=== PATIENT | female | born 1975 | race Caucasian/White ===

== ENCOUNTER → 2021-05-26 13:59 | Outpatient (BNVA) | payer BC, SELFPAY | PROVIDERS: PCP Nurse Practitioner Family; Visit Provider Hospitalist ==

== ENCOUNTER 2023-06-06 11:08 | Outpatient (AMB) | payer BC, SELFPAY ==
[2023-06-06 11:16] VITALS: BP 118/70; PULSE 65; O2SAT 96; BMI 28.2
--- NOTE | 2023-06-06 11:16 | A.OFFVIS_ITS ---
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 Allergies amoxicillin Allergy (Severe, Verified 06/06/23 11:19) Rash oxcarbazepine [Trileptal] Allergy (Severe, Verified 06/06/23 11:19) Numbness Tongue Sulfa (Sulfonamide Antibiotics) Allergy (Severe, Verified 06/06/23 11:19) Hives Erythromycin Allergy (Severe, Uncoded 06/06/23 11:19) Nausea Penicillins Allergy (Severe, Uncoded 06/06/23 11:19) Rash Wellbutrin Allergy (Severe, Uncoded 06/06/23 11:19) Raging HPI HPI Comments History of Present Illness Details Tthe patient is a 48-ear-old woman with a known history of asthma in addition to significant allergies and obstructive sleep apnea on CPAP. For nest not standpoint the patient has had a good year. She was able to taper off some of her medication for the winter and spring. Subsequently in the summertime she was having more exposures and she was started having increasing chest tightness and having to use her rescue inhaler. So therefore she maximized on her inhaled cortical steroid, QVAR and she did well. She did not require prednisone. She has not been sick with any viral syndrome. The patient has been vaccinated for COVID-19. In the meantime she does have allergies specially with cats. She does have family's with cats and makes it difficult to visit. She is interested in considering going back to allergy shots that work well for her. Therefore make a referral to a local communications supervisor. In the meantime she continues use her CPAP. The CPAP therapy continues to be affecting beneficial. She does use it for more than 4 hours a night. At this point she is looking to traveling more and is interested in a travel CPAP. I will give her prescription for her to take to her supplier. Otherwise patient will follow-up in a year's time. If she has any issues she knows to call our office for an earlier evaluation. 06/01/2022 the patient is here for pulmonary follow-up visit. Overall the patient has been doing fairly well. She did restart her allergy testing. Since it was an issue of the allergy supplies on back order now she has to restart from the beginning. The patient is okay with that. She does have increased allergies and allergy symptoms at this time. She has been using her QVAR more regularly because of that reason. Still she does require her short-acting beta agonist more than twice a week. We did talk about considering a combination inhaler. At this point I will send the Liliam to the pharmacy that she can use it started the QVAR. I am hopeful that her knee of her rescue inhaler will decrease with a combination inhaler. She will continue with the allergy testing and also the allergy medication. From a CPAP standpoint the patient is doing well. She does uses CPAP every night. CPAP therapy continues to be affecting beneficial. She is getting supplies readily available through her [employer] company, regional. 06/06/2023 the patient is here for a regular follow-up visit. Overall the patient has been having more symptoms lately because of the transitioning over to fall. Indeed having to increase her uses Symbicort lately. The patient has been having continue allergy symptoms. She does take allergy shots and now she only does some once a month. As far as her CPAP the CPAP therapy continues to be affecting beneficial. Although seems like the machine is not working as a properly anymore. Difficult to download since is an older machine and does not provide any further download. Based on the fact that she has had for more than 5 years not able to be downloaded in does not seem to be working appropriately will request a replacement AirSense 11 APAP through her current DME company. She is going to continue with her allergy shots and continue with Symbicort otherwise. If she has any issues at any point she can always call for an earlier assessment. [facility] Medical History (Updated 05/26/21 @ 21:34 by Graeme Moore MD) Chronic allergic rhinitis OCTAVIA on CPAP Unspecified asthma, uncomplicated Social History (Updated 05/26/21 @ 14:08 by JEVON Tyson) Patient Tobacco Use Status: Never used Tobacco Review of Systems Const Denies night sweats Eyes Reports itchy eyes ENT Denies change in voice, Denies lip swelling, Denies mouth pain, Reports nasal congestion, Reports nasal discharge and Denies tongue swelling Card Denies chest pain Resp Reports cough and Reports wheezing GI Denies abdominal pain Musc Denies no additional complaints Neuro Denies Neuro-related abnormal movements Psych Denies no additional complaints Juan/Lymph Denies easy bleeding and Denies lymphadenopathy Aller/Immun Reports itchy eyes, Denies lip swelling, Reports seasonal rhinorrhea, Denies tongue swelling and Reports wheezing Physical Exam Vital Signs: Last Vital Signs Pulse 65 06/06/23 11:16 BP 118/70 06/06/23 11:16 Pulse Ox 96 06/06/23 11:16 Oxygen Delivery Method Room Air 06/06/23 11:16 BMI result Body Mass Index 28.2 Const General: alert Chest Chest palpation & inspection: normal inspection of the chest Resp Effort & Inspection: prolonged expiratory phase Auscultation: no rales, no rhonchi, no wheezes and diminished lung sounds Cardio Rate: regular rate Rhythm: regular rhythm Heart sounds: S1 normal heart sound present and S2 normal heart sound present GI Palpation (GI): Soft to palpation and nontender Auscultation: normal bowel sounds Skin General skin exam: rashes and/or lesions noted Assessment & Plan Assessment & Plan (1) OCTAVIA on CPAP: Code(s): G47.33 - Obstructive sleep apnea (adult) (pediatric); Z99.89 - Dependence on other enabling machines and devices (2) Chronic allergic rhinitis: Code(s): J30.9 - Allergic rhinitis, unspecified (3) Unspecified asthma, uncomplicated: Code(s): J45.909 - Unspecified asthma, uncomplicated Qualifiers: Asthma persistence: unspecified Asthma severity: moderate Qualified Code(s): J45.909 - Unspecified asthma, uncomplicated Plan continue Simbicort continue singular daily short-acting beta agonist as needed continue allergy shots continue CPAP therapy at the current setting. Supplies through [facility]. APAP now older than 5 years. Not working appropriately. Will request a replacement APAP Airsense 11 follow-up in 1 year sooner if she develops any worsening symptoms Coding Level of Care Code Est Pt Level 4 (88607) Diagnoses OCTAVIA on CPAP G47.33; Z99.89 Chronic allergic rhinitis J30.9 Unspecified asthma, uncomplicated J45.909 Asthma persistence: unspecified Asthma severity: moderate Time Spent (min) 17
== END 2023-06-06 11:32 | disposition home or self-care (01) ==
PROVIDERS: PCP Nurse Practitioner Family; Visit Provider Hospitalist
DX: G47.33 Obstructive sleep apnea (adult) (pediatric) (principal); Z99.89 Dependence on other enabling machines and devices; J30.9 Allergic rhinitis, unspecified; J45.909 Unspecified asthma, uncomplicated
CPT/HCPCS: 99214

== ENCOUNTER → 2023-06-06 11:08 | Outpatient (BNVA) | payer BC, SELFPAY | PROVIDERS: PCP Nurse Practitioner Family; Visit Provider Hospitalist ==

== ENCOUNTER 2024-07-15 15:15 | Outpatient (AMB) | payer BC, SELFPAY ==
[2024-07-15 15:20] VITALS: BP 118/60; PULSE 64; O2SAT 100; BMI 28.4
--- NOTE | 2024-07-15 15:20 | MHC.OFFVIS ---
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 For nest not standpoint the patient has had a good year. She was able to taper off some of her medication for the winter and spring. Subsequently in the summertime she was having more exposures and she was started having increasing chest tightness and having to use her rescue inhaler. So therefore she maximized on her inhaled cortical steroid, QVAR and she did well. She did not require prednisone. She has not been sick with any viral syndrome. The patient has been vaccinated for COVID-19. In the meantime she does have allergies specially with cats. She does have family's with cats and makes it difficult to visit. She is interested in considering going back to allergy shots that work well for her. Therefore make a referral to a local mail order clerk. In the meantime she continues use her CPAP. The CPAP therapy continues to be affecting beneficial. She does use it for more than 4 hours a night. At this point she is looking to traveling more and is interested in a travel CPAP. I will give her prescription for her to take to her supplier. Otherwise patient will follow-up in a year's time. If she has any issues she knows to call our office for an earlier evaluation. 06/01/2022 the patient is here for pulmonary follow-up visit. Overall the patient has been doing fairly well. She did restart her allergy testing. Since it was an issue of the allergy supplies on back order now she has to restart from the beginning. The patient is okay with that. She does have increased allergies and allergy symptoms at this time. She has been using her QVAR more regularly because of that reason. Still she does require her short-acting beta agonist more than twice a week. We did talk about considering a combination inhaler. At this point I will send the Liliam to the pharmacy that she can use it started the QVAR. I am hopeful that her knee of her rescue inhaler will decrease with a combination inhaler. She will continue with the allergy testing and also the allergy medication. From a CPAP standpoint the patient is doing well. She does uses CPAP every night. CPAP therapy continues to be affecting beneficial. She is getting supplies readily available through her [employer] company, regional. 06/06/2023 the patient is here for a regular follow-up visit. Overall the patient has been having more symptoms lately because of the transitioning over to fall. Indeed having to increase her uses Symbicort lately. The patient has been having continue allergy symptoms. She does take allergy shots and now she only does some once a month. As far as her CPAP the CPAP therapy continues to be affecting beneficial. Although seems like the machine is not working as a properly anymore. Difficult to download since is an older machine and does not provide any further download. Based on the fact that she has had for more than 5 years not able to be downloaded in does not seem to be working appropriately will request a replacement AirSense 11 APAP through her current [employer] company. She is going to continue with her allergy shots and continue with Symbicort otherwise. If she has any issues at any point she can always call for an earlier assessment. 07/15/2024 the patient is here for a pulmonary follow-up visit. Overall the patient has been doing well. She did get her new machine. Her CPAP has been affecting beneficial. Current APAP settings 03/09/2014. Average pressure is 6.8. Her AHI is down to 1. she does use it for more than 4 hours in is been affecting beneficial. She does use a P 10 nasal pillows which comfortable. She is considering a different mask. She can consider the P 30. otherwise she can meet with the [employer] for mask clinic. she does wear a mouth guard so therefore she needs to continue with the nasal or the nasal pillows. And she has a hard time with a chinstrap because it is too cumbersome with the mouth guard. From an asthma standpoint the patient is doing well. She still has a Symbicort inhaler although she only uses it as needed. She also has a rescue inhaler. She has not had any exacerbations either. Overall she is doing well. If the patient develops any respiratory symptoms she will call otherwise follow-up in a year's time. [facility] Medical History (Updated 07/15/24 @ 22:13 by Graeme Moore MD) OCTAVIA on CPAP Chronic allergic rhinitis Unspecified asthma, uncomplicated Social History (Updated 05/26/21 @ 14:08 by JEVON Tyson) Patient Tobacco Use Status: Never used Tobacco Review of Systems Const Denies night sweats Eyes Reports itchy eyes ENT Denies change in voice, Denies lip swelling, Denies mouth pain, Reports nasal congestion, Reports nasal discharge and Denies tongue swelling Card Denies chest pain Resp Reports cough and Reports wheezing GI Denies abdominal pain Musc Denies no additional complaints Neuro Denies Neuro-related abnormal movements Psych Denies no additional complaints Juan/Lymph Denies easy bleeding and Denies lymphadenopathy Aller/Immun Reports itchy eyes, Denies lip swelling, Reports seasonal rhinorrhea, Denies tongue swelling and Reports wheezing Physical Exam Vital Signs: Last Vital Signs Pulse 64 07/15/24 15:20 BP 118/60 07/15/24 15:20 Pulse Ox 100 07/15/24 15:20 Oxygen Delivery Method Room Air 07/15/24 15:20 BMI result Body Mass Index 28.4 Const General: alert Chest Chest palpation & inspection: normal inspection of the chest Resp Effort & Inspection: No prolonged expiratory phase Auscultation: clear to auscultation bilaterally, no rales, no rhonchi and no wheezes Cardio Rate: regular rate Rhythm: regular rhythm Heart sounds: S1 normal heart sound present and S2 normal heart sound present GI Palpation (GI): Soft to palpation and nontender Auscultation: normal bowel sounds Skin General skin exam: rashes and/or lesions noted Office Procedures Flu Questionnaire Does the patient have a severe egg allergy?: No Does the patient have severe life threatening allergies?: No Does the patient have a fever or illness today?: No Has the patient ever had Guillain-[place] Syndrome?: No Has the patient ever had any past reaction to a flu shot?: No Assessment & Plan Assessment & Plan (1) OCTAVIA on CPAP: Code(s): G47.33 - Obstructive sleep apnea (adult) (pediatric); Z99.89 - Dependence on other enabling machines and devices Category: Medical (2) Chronic allergic rhinitis: Code(s): J30.9 - Allergic rhinitis, unspecified Category: Medical (3) Unspecified asthma, uncomplicated: Code(s): J45.909 - Unspecified asthma, uncomplicated Category: Medical Qualifiers: Asthma persistence: persistent Asthma severity: moderate Qualified Code(s): J45.40 - Moderate persistent asthma, uncomplicated Plan continue Simbicort continue singular daily short-acting beta agonist as needed continue allergy shots continue APAP 6-14 therapy at the current setting. Arisense 11. p10, [facility] follow-up in 1 year sooner if she develops any worsening symptoms Orders: Orders Influenza [id number] Immunization Today Z23 - Encounter for immunization Coding Level of Care Code Est Pt Level 4 (23291) Diagnoses OCTAVIA on CPAP G47.33; Z99.89 Chronic allergic rhinitis J30.9 Moderate persistent asthma without complication J45.40 Asthma persistence: persistent Asthma severity: moderate Time Spent (min) 16
== END 2024-07-15 15:48 | disposition home or self-care (01) ==
PROVIDERS: PCP Nurse Practitioner Family; Visit Provider Hospitalist
DX: G47.33 Obstructive sleep apnea (adult) (pediatric) (principal); Z99.89 Dependence on other enabling machines and devices; J30.9 Allergic rhinitis, unspecified; J45.40 Moderate persistent asthma, uncomplicated; Z23 Encounter for immunization
CPT/HCPCS: 99214

== ENCOUNTER → 2024-07-15 15:15 | Outpatient (BNVA) | payer BC, SELFPAY | PROVIDERS: PCP Nurse Practitioner Family; Visit Provider Hospitalist | DX: G47.33 Obstructive sleep apnea (adult) (pediatric) (principal); J30.9 Allergic rhinitis, unspecified; J45.40 Moderate persistent asthma, uncomplicated; Z99.89 Dependence on other enabling machines and devices; Z23 Encounter for immunization | CPT/HCPCS: 90471; 90656 ==

== ENCOUNTER 2025-07-13 08:56 | Outpatient (AMB) | payer BC, SELFPAY ==
[2025-07-13 09:02] VITALS: BP 108/68; PULSE 88; O2SAT 98; BMI 30.8
--- NOTE | 2025-07-13 09:02 | A.OFFVIS_ITS ---
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 Accompanied by: Self / Same As Patient Allergies amoxicillin Allergy (Severe, Verified 07/13/25 09:05) Rash oxcarbazepine (Trileptal) Allergy (Severe, Verified 07/13/25 09:05) Numbness Tongue Sulfa (Sulfonamide Antibiotics) Allergy (Severe, Verified 07/13/25 09:05) Hives Erythromycin Allergy (Severe, Uncoded 07/15/24 15:23) Nausea Penicillins Allergy (Severe, Uncoded 07/15/24 15:23) Rash Wellbutrin Allergy (Severe, Uncoded 07/15/24 15:23) Raging HPI Comments Details: Tthe patient is a 50-ear-old woman with a known history of asthma in addition to significant allergies and obstructive sleep apnea on CPAP. For nest not standpoint the patient has had a good year. She was able to taper off some of her medication for the winter and spring. Subsequently in the summertime she was having more exposures and she was started having increasing chest tightness and having to use her rescue inhaler. So therefore she maximized on her inhaled cortical steroid, QVAR and she did well. She did not require prednisone. She has not been sick with any viral syndrome. The patient has been vaccinated for COVID-19. In the meantime she does have allergies specially with cats. She does have family's with cats and makes it difficult to visit. She is interested in considering going back to allergy shots that work well for her. Therefore make a referral to a local change director. In the meantime she continues use her CPAP. The CPAP therapy continues to be affecting beneficial. She does use it for more than 4 hours a night. At this point she is looking to traveling more and is interested in a travel CPAP. I will give her prescription for her to take to her supplier. Otherwise patient will follow-up in a year's time. If she has any issues she knows to call our office for an earlier evaluation. 06/01/2022 the patient is here for pulmonary follow-up visit. Overall the patient has been doing fairly well. She did restart her allergy testing. Since it was an issue of the allergy supplies on back order now she has to restart from the beginning. The patient is okay with that. She does have increased allergies and allergy symptoms at this time. She has been using her QVAR more regularly because of that reason. Still she does require her short-acting beta agonist more than twice a week. We did talk about considering a combination inhaler. At this point I will send the Liliam to the pharmacy that she can use it started the QVAR. I am hopeful that her knee of her rescue inhaler will decrease with a combination inhaler. She will continue with the allergy testing and also the allergy medication. From a CPAP standpoint the patient is doing well. She does uses CPAP every night. CPAP therapy continues to be affecting beneficial. She is getting supplies readily available through her [employer] company, regional. 06/06/2023 the patient is here for a regular follow-up visit. Overall the patient has been having more symptoms lately because of the transitioning over to fall. Indeed having to increase her uses Symbicort lately. The patient has been having continue allergy symptoms. She does take allergy shots and now she only does some once a month. As far as her CPAP the CPAP therapy continues to be affecting beneficial. Although seems like the machine is not working as a properly anymore. Difficult to download since is an older machine and does not provide any further download. Based on the fact that she has had for more than 5 years not able to be downloaded in does not seem to be working appropriately will request a replacement AirSense 11 APAP through her current [employer] company. She is going to continue with her allergy shots and continue with Symbicort otherwise. If she has any issues at any point she can always call for an earlier assessment. 07/15/2024 the patient is here for a pulmonary follow-up visit. Overall the patient has been doing well. She did get her new machine. Her CPAP has been affecting beneficial. Current APAP settings 03/09/2014. Average pressure is 6.8. Her AHI is down to 1. she does use it for more than 4 hours in is been affecting beneficial. She does use a P 10 nasal pillows which comfortable. She is considering a different mask. She can consider the P 30. otherwise she can meet with the [facility] for mask clinic. she does wear a mouth guard so therefore she needs to continue with the nasal or the nasal pillows. And she has a hard time with a chinstrap because it is too cumbersome with the mouth guard. From an asthma standpoint the patient is doing well. She still has a Symbicort inhaler although she only uses it as needed. She also has a rescue inhaler. She has not had any exacerbations either. Overall she is doing well. If the patient develops any respiratory symptoms she will call otherwise follow- up in a year's time. 07/13/2025 the patient is here for pulmonary follow-up visit. The patient overall has been doing okay. Recently she was diagnosed with diabetes and placed on metformin. She has not issues with weight gain. She has also noticed some increased lower extremity edema. Dhiz-of-mwecovcm severity. Her asthma has been stable she continues use her respiratory therapy with good effect. She stopped using the allergy shots. If her symptoms do worsen she can always consider biologics. Will go ahead and refer her again to allergy to make sure that she has continuation with that evaluation. In the meantime she continues uses CPAP. CPAP therapy has been affecting beneficial. She does use it for more than 4 hours a night. Her AHI is 0.9. Average pressure is around 7 cm of water. Therefore will continue with the current APAP settings since she is getting supplies from her [employer] company, [employer]. Will follow-up in a year's time if she has not issues prior to this she can always call for an earlier assessment. [facility] Medical History (Updated 07/15/24 @ 22:13 by Graeme Moore MD) OCTAVIA on CPAP Chronic allergic rhinitis Unspecified asthma, uncomplicated Social History Patient Tobacco Use Status: Never used Tobacco Review of Systems Const Denies night sweats and Reports weight gain Eyes Reports itchy eyes ENT Denies change in voice, Denies lip swelling, Denies mouth pain, Reports nasal congestion, Reports nasal discharge and Denies tongue swelling Card Denies chest pain Resp Reports cough and Reports wheezing GI Denies abdominal pain Musc Denies no additional complaints Neuro Denies Neuro-related abnormal movements Psych Denies no additional complaints Juan/Lymph Denies easy bleeding and Denies lymphadenopathy Aller/Immun Reports itchy eyes, Denies lip swelling, Reports seasonal rhinorrhea, Denies to ngue swelling and Reports wheezing Physical Exam Vital Signs: Last Vital Signs Pulse 88 07/13/25 09:02 BP 108/68 07/13/25 09:02 Pulse Ox 98 07/13/25 09:02 Oxygen Delivery Method Room Air 07/13/25 09:02 BMI result Body Mass Index 30.8 Const General: alert Neck Neck: Yes supple Chest Chest palpation & inspection: normal inspection of the chest Resp Effort & Inspection: normal respiratory effort and No prolonged expiratory phase Auscultation: clear to auscultation bilaterally, no rales, no rhonchi and no wheezes Cardio Rate: regular rate Rhythm: regular rhythm Heart sounds: S1 normal heart sound present and S2 normal heart sound present GI Palpation (GI): Soft to palpation and nontender Auscultation: normal bowel sounds Skin General skin exam: rashes and/or lesions noted Extrem General: No clubbing, No cyanosis and Yes edema Assessment & Plan Assessment & Plan (1) OCTAVIA on CPAP: Code(s): G47.33 - Obstructive sleep apnea (adult) (pediatric); Z99.89 - Dependence on other enabling machines and devices Category: Medical (2) Chronic allergic rhinitis: Code(s): J30.9 - Allergic rhinitis, unspecified Category: Medical (3) Unspecified asthma, uncomplicated: Code(s): J45.909 - Unspecified asthma, uncomplicated Category: Medical Qualifiers: Asthma persistence: persistent Asthma severity: moderate Qualified Code(s): J45.40 - Moderate persistent asthma, uncomplicated Plan continue Simbicort continue singular daily short-acting beta agonist as needed stopped allergy shots continue APAP 6-14 therapy at the current setting. Arisense 11. p10, D[facility] weight management, consider animal anatomy teacher Agree with GLP 1, Zepbound, as a good option follow-up in 1 year sooner if she develops any worsening symptoms Orders: Referrals Allergy & Immunology Referral J45.909 - Unspecified asthma, uncomplicated Coding Level of Care Code Est Pt Level 4 (53338) Diagnoses OCTAVIA on CPAP G47.33; Z99.89 Chronic allergic rhinitis J30.9 Moderate persistent asthma without complication J45.40 Asthma persistence: persistent Asthma severity: moderate Time Spent (min) 17
== END 2025-07-13 09:28 | disposition home or self-care (01) ==
PROVIDERS: PCP Nurse Practitioner Family; Visit Provider Hospitalist
DX: G47.33 Obstructive sleep apnea (adult) (pediatric) (principal); Z99.89 Dependence on other enabling machines and devices; J30.9 Allergic rhinitis, unspecified; J45.40 Moderate persistent asthma, uncomplicated
CPT/HCPCS: 99214